=== PATIENT | male | born 1970 | race Caucasian/White ===

== ENCOUNTER 2024-02-18 20:32 | Emergency (ER) | payer OTHER ==
[2024-02-18] MEDS ORDERED: Acetaminophen 325 MG TAB ONE (21:44)
[2024-02-18] MEDS ORDERED: Lidocaine Viscous Sol 2% 15 ml UD Cup ONE (21:44)
[2024-02-18] MEDS ORDERED: cloNIDine 0.1 MG TAB ONE (21:44)
[2024-02-18] MEDS ORDERED: Penicillin V Potassium 250 MG TAB PO SCH (22:00)
== END 2024-02-18 22:28 | disposition home or self-care (01) ==
LOC: ERS 20:32
DX: K02.9 Dental caries, unspecified (principal); I10 Essential (primary) hypertension; E11.9 Type 2 diabetes mellitus without complications; F17.210 Nicotine dependence, cigarettes, uncomplicated
CPT/HCPCS: 93005; 99283